=== PATIENT | female | born 1960 | race African-American/Black ===

== ENCOUNTER 2017-01-02 14:14 | Emergency (ER) | payer MEDICARE, OTHER ==
[~2017-01-02] VITALS: Ht 167.6 cm; Wt 59.0 kg
[~2017-01-02 14:14] MED LIST: ACARBOSE50 MG ORAL; AMBIEN10 MG PO; ATIVAN1 MG ORAL; CELEXA20 MG PO; CIPRO500 MG PO; DILAUDID4 MG PO; DIPHENHYDRAMINE25 M3 ORAL; FAMOTIDINE20 MG ORAL; FLEXERIL10 MG ORAL; FLOMAX0.4 MG ORAL; IBUPROFEN600 MG ORAL; LOSARTAN POTASS25 MG ORAL; TRAMADOL HCL50 MG ORAL; TRAMADOL HCL50 MG PO; TRAZODONE HCL150 MG ORAL; UNOBMED; ativan; cozaar
[2017-01-02 14:34] VITALS: BP 111/72
[2017-01-02] MEDS ORDERED: ATIVAN0.5 MG ORAL (14:52)
[2017-01-02 15:23] LABS: BASOPHILS % (AUTO) 1.1 % (0.0-2.0); EOSINOPHILS % (AUTO) 0.7 % (0.0-3.0); LYMPHOCYTES % (AUTO) 20.1 % (20.0-45.0); MEAN CORPUSCULAR HEMOGLOBIN 33.3 PG (27.0-31.0); MEAN CORPUSCULAR HGB CONC 33.5 G/DL (32.0-36.0); MEAN CORPUSCULAR VOLUME 99 FL (80-99); MEAN PLATELET VOLUME 6.5 FL (6.5-10.1); MONOCYTES % (AUTO) 5.9 % (1.0-10.0); NEUTROPHILS % (AUTO) 72.2 % (45.0-75.0); PLATELET COUNT 252 K/UL (150-450); RED BLOOD COUNT 3.83 M/UL (4.20-5.40); RED CELL DISTRIBUTION WIDTH 15.8 % (11.6-14.8); WHITE BLOOD COUNT 9.2 K/UL (4.8-10.8)
--- NOTE | 2017-01-02 15:31 | Emergency Room Report ---
History of Present Illness General Chief Complaint: Altered Level of Consciousness Source: Patient, EMS Present Illness HPI 56 YOF BIBEMS for AMS. Patient woke up on her bed surrounded by paramedics. States family member found her altered and "covered in sweat." Glucose was "low " (<50). Was given d10 with improvement. Not on DM medication. States has happened "many times before" and "multiple specialists" have been consulted and dont have an answer. Takes Trazodone/ativan/ambian combination nightly for insomnia. Slept fine last night. Ate breakfast this morning. Feels better now. Denies headache, chest pain, SOB, palpitations, abd pain, nausea/vomiting , urinary complaints. Feels well otherwise. Allergies: Coded Allergies: No Known Allergies (Verified , 12/29/13) Patient History Past Medical History: psych hx, other - insomnia Past Surgical History: none Pertinent Family History: none Social History: Denies: alcohol use, drug use, smoking Now: No Immunizations: UTD Reviewed Nursing Documentation: PMH: Agreed, PSxH: Agreed Nursing Documentation-PMH Past Medical History: No History, Except For Hx Hypertension: Yes - HISTORY Hx Pacemaker: No Hx Asthma: No Hx COPD: No Hx Diabetes: No Hx Cancer: No Hx Gastrointestinal Problems: Yes - cholecystectomy 2007 History Of Psychiatric Problem: Yes - Depression, Insonmia Hx Neurological Problems: No Hx Cerebrovascular Accident: No Hx Seizures: No Review of Systems Skin: Denies: change in color, change in hair/nails, dryness, lesions, no symptoms, other, rash, see HPI All Other Systems: negative except mentioned in HPI Physical Exam Vital Signs Date Time Temp Pulse Resp B/P Pulse Ox O2 Delivery O2 Flow Rate FiO2 01/02/17 14:16 97.9 78 16 140/100 98 Room Air Sp02 EP Interpretation: reviewed, normal General Appearance: normal inspection, well appearing, no apparent distress, alert, GCS 15, non-toxic Head: normocephalic, atraumatic Eyes: bilateral eye EOMI, bilateral eye PERRL ENT: normal ENT inspection, hearing grossly normal, normal voice Neck: normal inspection, full range of motion, supple, no bony tend Respiratory: normal inspection, lungs clear, normal breath sounds, no respiratory distress, no retraction, no wheezing Cardiovascular #1: regular rate, rhythm, no edema Gastrointestinal: normal inspection, normal bowel sounds, non tender, soft, no guarding, no hernia Genitourinary: no CVA tenderness Musculoskeletal: normal inspection, back normal, normal range of motion, Maximino' s Sign negative Neurologic: normal inspection, alert, oriented x3, responsive, veneer redrier III-XII nml as tested, motor strength/tone normal, speech normal Psychiatric: normal inspection, judgement/insight normal, mood/affect normal Skin: normal inspection Lymphatic: normal inspection Medical Decision Making Diagnostic Impression: Primary Impression: Altered level of consciousness Additional Impressions: Hypoglycemia 1St degree AV block ER Course AMS - Likely hypoglycemia, unknown etiology - Repeat serum chemistry here shows glucose 146. Known CKD with slight serumCr elevation. No metabolic abnormality - ECG shows 1st degree AV block. Troponin 0. Patient states the block is a new diagnosis for her - No leuks. H&H stable. PLAN - DC with Cardiology followup for 1st degree AV block EKG Diagnostic Results Rate: normal, other - 1st degree AV block; lead 3 TWI Rhythm: NSR ST Segments: no acute changes Rhythm Strip Diag. Results EP Interpretation: yes Rate: 82 Rhythm: NSR, no PVC's, no ectopy Last Vital Signs Date Time Temp Pulse Resp B/P Pulse Ox O2 Delivery O2 Flow Rate FiO2 01/02/17 14:34 97.7 87 16 111/72 99 Room Air Status: improved Disposition: HOME, SELF-CARE RUCHI JIANG M.D. Jan 02, 2017 15:30
[2017-01-02 15:35] LABS: TROPONIN I < 0.30 ng/mL (<=0.30)
[2017-01-02 15:38] LABS: ALANINE AMINOTRANSFERASE 16 U/L (3-33); ALBUMIN/GLOBULIN RATIO 1.1 (1.0-2.7); ASPARTATE AMINO TRANSFERASE 27 U/L (5-40); CALCIUM 9.7 mg/dL (8.6-10.2); CARBON DIOXIDE 21 mEQ/L (20-30); CHLORIDE 105 mEQ/L (98-107); CREATININE 1.3 mg/dL (0.5-0.9); GLOMERULAR FILTRATION RATE 51.5 mL/min (>60); HEMOLYSIS 91; POTASSIUM 4.8 mEQ/L (3.4-4.9); SODIUM 141 mEQ/L (135-145); TOTAL PROTEIN 7.2 g/dL (6.6-8.7)
[2017-01-02 15:39] LABS: ANION GAP 15 (5-15)
[2017-01-02 16:00] VITALS: BP 108/70
[2017-01-02 17:48] VITALS: BP 139/85
== END 2017-01-02 17:50 | disposition home or self-care (01) ==
LOC: EDBD 14:14 → EMR 14:55
DX: R41.82 Altered mental status, unspecified (principal); E16.2 Hypoglycemia, unspecified; I44.0 Atrioventricular block, first degree; I10 Essential (primary) hypertension; Z90.49 Acquired absence of other specified parts of digestive tract; Z86.59 Personal history of other mental and behavioral disorders
CPT/HCPCS: 36415; 80053; 82962; 84484; 85025; 93005; 99283

== ENCOUNTER 2018-03-16 15:09 | Outpatient (CLI) | payer MEDICARE, OTHER ==
[~2018-03-16] VITALS: Ht 160 cm; Wt 73.5 kg
[~2018-03-16 15:09] MED LIST changes: +ATIVAN0.5 MG ORAL
[2018-03-16 15:22] VITALS: BP 129/86
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
[2018-03-16] MEDS ORDERED: SERTRALINE HCL50 MG ORAL (15:59)
== END 2018-03-16 15:39 | disposition home or self-care (01) ==
LOC: PAN 15:09
DX: R10.9 Unspecified abdominal pain (principal); Z98.84 Bariatric surgery status; I10 Essential (primary) hypertension; F41.9 Anxiety disorder, unspecified; F32.9 Major depressive disorder, single episode, unspecified; Z90.49 Acquired absence of other specified parts of digestive tract

== ENCOUNTER 2018-03-29 09:48 | Day surgery (SDC) | payer MEDICARE, OTHER ==
[2018-03-29] VITALS (9 sets, daily range): BP systolic 129–157; BP diastolic 73–98
[~2018-03-29] VITALS: Ht 162.6 cm; Wt 72.6 kg
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
[~2018-03-29 09:48] MED LIST changes: +Atropine Inj 1mg/10ml Syr IV PRN; +DiphenhydrAMINE 50mg/ml Inj IVP PRN; +Labetalol 5mg/ml 20ml vial IV PRN; +Midazolam 2mg/2ml Inj IVP PRN; +SERTRALINE HCL50 MG ORAL; +fentaNYL 100 mcg/2 mL IV PRN
[2018-03-29] MEDS ORDERED: DILAUDID PO (10:44)
[2018-03-29] MEDS ORDERED: TRAMADOL HCL50 MG ORAL (10:45)
--- NOTE | 2018-03-29 11:25 | Pre-Procedure Note/Attestation ---
Pre-Procedure Note/Attestation Complete Prior to Procedure Planned Procedure: not applicable Procedure Narrative: colonoscopy Indications for Procedure Pre-Operative Diagnosis: screening Attestation I attest that I discussed the nature of the procedure; its benefits; risks and complications; and alternatives (and the risks and benefits of such alternatives ), prior to the procedure, with the patient (or the patient's legal wireless sales representative). I attest that, if there was a reasonable possibility of needing a blood transfusion, the patient (or the patient's legal wireless sales representative) was given the [facility] standardized written summary, pursuant to the Constantino [place] Blood Safety Act ([place] Health and Safety Code # 1645, as amended). I attest that I re-evaluated the patient just prior to the surgery and that there has been no change in the patient's H&P, except as documented below: Jewel Jenkins MD Mar 29, 2018 11:25
--- NOTE | 2018-03-29 11:25 | Short Stay Surgery H&P ---
History of Present Illness History of Present Illness Chief Complaint see recent office note HPI Zhanna Retana Friend is a 57 year old female who was admitted on for Colon Screening Patient History Allergies: Coded Allergies: PAROXETINE (Verified Allergy, Severe, 03/29/18) SUICIDAL ACTIONS Medication History Scheduled Cyclobenzaprine Hcl* (Flexeril*), 10 MG ORAL DAILY, (Reported) Famotidine (Famotidine), 20 MG ORAL DAILY, (Reported) Lorazepam* (Ativan*), 1.5 MG ORAL BID, (Reported) Sertraline Hcl* (Zoloft*), Unknown Dose ORAL DAILY, (Reported) Trazodone* (Trazodone*), 100 MG ORAL BEDTIME, (Reported) Zolpidem Tartrate* (Ambien*), 10 MG PO HS, (Reported) [Dilaudid], 2 MG PO NEEDED, (Reported) Scheduled PRN Tramadol Hcl* (Ultram*), 50 MG ORAL Q6H PRN for For Pain, (Reported) Discontinued Medications Ibuprofen* (Motrin*), 600 MG ORAL Q8H PRN for For Pain Discontinued Reason: Pt stopped taking med Physical Exam Vital Signs Last Vital Signs Date Time Temp Pulse Resp B/P (MAP) Pulse Ox O2 Delivery O2 Flow Rate FiO2 03/29/18 11:14 98.2 83 20 132/98 (109) 99 98.2 03/29/18 10:27 Room Air Plan Attestation Are the patient's medical conditions optimized for surgery? Jewel Jenkins MD Mar 29, 2018 11:25
[2018-03-29] MEDS ORDERED: Propofol 200mg/20ml IV ONE (11:30)
[2018-03-29] MEDS ORDERED: Lidocaine 1% MPF 10mg/ml 5ml ONE (11:30)
--- NOTE | 2018-03-29 11:55 | Endoscopy Procedure Note ---
Endoscopy Procedure Note General Indication for Procedure: screening Procedures Performed: colonoscopy Operative Findings/Diagnosis: 6 polyps Specimen: yes Pt Tolerated Procedure Well: Yes Estimated Blood Loss: none Anesthesia Anesthesiologist: lamar Anesthesia: MAC Inserted Devices Implant(s) used?: No Quality Quality of Bowel Preparation: Good Did scope reach the cecum?: Yes Was there any complications?: No GI Core Measures 50 yrs or older w/o bx or poly: No 10yrs. F/U not recommended: Yes If not recommended, why?: Above average risk 10 yrs. F/U needed: Yes 18 years or older w/prev. colo: No Jewel Jenkins MD Mar 29, 2018 11:55
--- NOTE | 2018-03-29 14:33 | Immediate Post-Op Evaluation ---
Immediate Post-Op Evalulation Immediate Post-Op Evalulation Procedure: colonoscopy w/bx Date of Evaluation: Mar 29, 2018 Time of Evaluation: 12:10 IV Fluids: 200ml 0.9ns Blood Products: none Estimated Blood Loss: negligible Blood Pressure Systolic: 143 Blood Pressure Diastolic: 77 Pulse Rate: 71 Respiratory Rate: 18 O2 Sat by Pulse Oximetry: 100 Temperature (Fahrenheit): 97.4 Pain Score (1-10): 0 Nausea: No Vomiting: No Complications none Patient Status: awake, reacts, patent Hydration Status: adequate Drug: Heavenly Nieto MD Mar 29, 2018 14:33
--- NOTE | 2018-03-29 14:35 | 48 Hour Post Anesthesia Eval ---
Post Anesthesia Evaluation Procedure: colonoscopy w/bx Date of Evaluation: Mar 29, 2018 Time of Evaluation: 12:12 Blood Pressure Systolic: 157 0: 94 Pulse Rate: 75 Respiratory Rate: 18 Temperature (Fahrenheit): 97.4 O2 Sat by Pulse Oximetry: 100 Airway: patent Nausea: No Vomiting: No Pain Intensity: 0 Hydration Status: adequate Cardiopulmonary Status: stable Mental Status/LOC: patient returned to baseline Post-Anesthesia Complications: none Follow-up care needed: N/A Heavenly Duran MD Mar 29, 2018 14:34
--- NOTE | 2018-03-29 16:30 | Procedure Note ---
DATE OF PROCEDURE: 03/29/2018 SURGEON: Jewel Jenkins M.D. ANESTHESIOLOGIST: Dr. Macdonald. PROCEDURE: Colonoscopy with snare polypectomy and biopsy. ANESTHESIA: Per Dr. Macdonald. INSTRUMENT: Olympus adult flexible colonoscope. INDICATION: Screening colonoscopy. The procedure, risks, benefits, and possible consequences, including hemorrhage, aspiration, perforation and infection, and alternative treatments, were explained to the patient/legal guardian by Dr. Jewel Jenkins and the patient/legal guardian understood and accepted these risks. DESCRIPTION OF PROCEDURE: After informed consent was obtained and the patient was adequately sedated, first rectal exam was performed which was normal. Then, the scope was advanced from the rectum into the cecum documented by the appendiceal orifice, ileocecal valve, and right upper quadrant palpation. Quality of prep was very good. Then the scope was advanced to the terminal ileum. Terminal ileum looked normal. The patient had a total of 6 polyps in this colonoscopy examination, two of them in ascending colon were removed with cold snare polypectomy. The rest of them were removed with the cold biopsy forceps technique, two in the transverse and two in the rectum. The patient also had evidence of scattered diverticulosis in the left colon. Retroflexion of rectum showed no obvious large internal hemorrhoids. SUMMARY OF FINDINGS: 1. Six colonic polyps removed, see above for details. 2. Diverticulosis. RECOMMENDATIONS: Follow up biopsy results and treat accordingly. Given 6 polyps, we recommend repeat colonoscopy in two years. Jewel Jenkins M.D. DR: Ronni JOB#: [id number] CC:
--- NOTE | 2018-03-30 23:39 | Cardiology Report ---
APPROVED REPORT EKG Measurement Heart [id number] MA [id number] Normal sinus rhythm Low voltage QRS Septal infarct, age undetermined Abnormal ECG
== END 2018-03-29 13:40 | disposition home or self-care (01) ==
LOC: GAS 09:48
DX: Z12.11 Encounter for screening for malignant neoplasm of colon (principal); D12.2 Benign neoplasm of ascending colon; D12.3 Benign neoplasm of transverse colon; K62.1 Rectal polyp; K21.9 Gastro-esophageal reflux disease without esophagitis; I10 Essential (primary) hypertension; F32.9 Major depressive disorder, single episode, unspecified; F41.9 Anxiety disorder, unspecified; Z98.84 Bariatric surgery status
CPT/HCPCS: 45380; 45385; 93005; J2704; 94003; 94150

== ENCOUNTER 2018-05-26 16:48 | Emergency (ER) | payer MEDICARE, OTHER ==
[~2018-05-26] VITALS: Ht 160 cm; Wt 72.6 kg
[~2018-05-26 16:48] MED LIST changes: -Atropine Inj 1mg/10ml Syr IV PRN; +DILAUDID PO; -DiphenhydrAMINE 50mg/ml Inj IVP PRN; -Labetalol 5mg/ml 20ml vial IV PRN; -Midazolam 2mg/2ml Inj IVP PRN; -fentaNYL 100 mcg/2 mL IV PRN
[2018-05-26 16:51] VITALS: BP 159/101
[2018-05-26] MEDS ORDERED: Fluorescein Strips RIGHT EYE ONE (18:00)
[2018-05-26] MEDS ORDERED: Tetracaine 0.5% Opth 4ml Soln RIGHT EYE ONE (18:00)
[2018-05-26] MEDS ORDERED: Norco 5mg/325mg tab ORAL ONE (18:00)
--- NOTE | 2018-05-26 18:39 | Diagnostic Imaging Report ---
EXAM: CT Head Without Intravenous Contrast CLINICAL HISTORY: PAIN TECHNIQUE: Axial computed tomography images of the head/brain without intravenous contrast. CTDI is 70.38 mGy and DLP is 1390 mGy-cm. One or more of the following dose reduction techniques were used: automated exposure control, adjustment of the mA and/or kV according to patient size, use of iterative reconstruction technique. COMPARISON: CT 10/26/12. FINDINGS: Brain: No hemorrhage. No edema. In the lue shunt changes. Old lacunes in the basal ganglia Ventricles: No ventriculomegaly. Bones/joints: No acute fracture. Soft tissues: Unremarkable. Sinuses: No acute sinusitis. Mastoid air cells: No mastoid effusion. IMPRESSION: No acute intracranial process.
--- NOTE | 2018-05-26 18:41 | Diagnostic Imaging Report ---
EXAM: CT Lumbar Spine Without Intravenous Contrast CLINICAL HISTORY: PAIN TECHNIQUE: Axial computed tomography images of the lumbar spine without intravenous contrast. CTDI is 16.41 mGy and DLP is 428 mGy-cm. One or more of the following dose reduction techniques were used: automated exposure control, adjustment of the mA and/or kV according to patient size, use of iterative reconstruction technique. COMPARISON: No relevant prior studies available. FINDINGS: Vertebrae: No fracture or malalignment. Discs/spinal canal/neural foramina: Degenerative changes. Soft tissues: Unremarkable. IMPRESSION: No fracture or malalignment.
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
[2018-05-26] MEDS ORDERED: COMBIGAN EYE DRO5 ML OP (19:00)
[2018-05-26] MEDS ORDERED: ROBAXIN500 MG PO (19:00)
[2018-05-26] MEDS ORDERED: TYLENOL EXTRA500 MG ORAL (19:00)
[2018-05-26 19:07] VITALS: BP 135/91
[2018-05-26] MEDS ORDERED: OCUFLOX5 ML OP (19:11)
== END 2018-05-26 19:17 | disposition home or self-care (01) ==
LOC: EDBD 16:48 → EMR 18:59
DX: S05.01XA Injury of conjunctiva and corneal abrasion without foreign body, right eye, initial encounter (principal); S30.0XXA Contusion of lower back and pelvis, initial encounter; S00.03XA Contusion of scalp, initial encounter; Y04.2XXA Assault by strike against or bumped into by another person, initial encounter; Y92.9 Unspecified place or not applicable
CPT/HCPCS: 70450; 72131; 99284

== ENCOUNTER 2019-04-20 11:48 | Outpatient (CLI) | payer MEDICARE, OTHER ==
[~2019-04-20 11:48] MED LIST changes: +COMBIGAN EYE DRO5 ML OP; +OCUFLOX5 ML OP; +ROBAXIN500 MG PO; +TYLENOL EXTRA500 MG ORAL
[2019-04-20 12:33] LABS: EOSINOPHILS % (AUTO) 1.3 % (0.0-3.0); HEMATOCRIT 42.2 % (37.0-47.0); HEMOGLOBIN 13.1 G/DL (12.0-16.0); LYMPHOCYTES % (AUTO) 40.2 % (20.0-45.0); MEAN CORPUSCULAR VOLUME 93 FL (80-99); MONOCYTES % (AUTO) 3.9 % (1.0-10.0); NEUTROPHILS % (AUTO) 53.7 % (45.0-75.0); PLATELET COUNT 312 K/UL (150-450); RED BLOOD COUNT 4.56 M/UL (4.20-5.40); RED CELL DISTRIBUTION WIDTH 15.6 % (11.6-14.8); WHITE BLOOD COUNT 5.9 K/UL (4.8-10.8)
[2019-04-20 13:23] LABS: ALANINE AMINOTRANSFERASE 20 U/L (12-78); ALKALINE PHOSPHATASE 122 U/L (46-116); ANION GAP 9 mmol/L (5-15); ASPARTATE AMINO TRANSFERASE 27 U/L (15-37); BILIRUBIN,TOTAL 0.3 MG/DL (0.2-1.0); BLOOD UREA NITROGEN 15 mg/dL (7-18); CALCIUM 9.9 MG/DL (8.5-10.1); CARBON DIOXIDE 25 MMOL/L (21-32); CHLORIDE 106 MMOL/L (98-107); CHOLESTEROL 195 MG/DL (< 200); CREATININE 1.3 MG/DL (0.55-1.30); HDL CHOLESTEROL 73 MG/DL (40-60); POTASSIUM 4.3 MMOL/L (3.5-5.1); SODIUM 140 MMOL/L (136-145); TRIGLYCERIDES 79 MG/DL (30-150)
== END 2019-04-20 13:48 | disposition home or self-care (01) ==
LOC: LAB 11:48
DX: D64.9 Anemia, unspecified (principal); E78.5 Hyperlipidemia, unspecified; N28.9 Disorder of kidney and ureter, unspecified
CPT/HCPCS: 36415; 80053; 80061; 85025